=== PATIENT | female | born 1955 | race Caucasian/White ===

== ENCOUNTER 2017-01-19 18:02 | Emergency (ER) | payer MEDICARE ==
[2017-01-19 19:33] VITALS: BP 136/71
[2017-01-19] MEDS ORDERED: Amoxicillin/Clavulanate TAB* 875 MG PO ONE (20:26)
--- NOTE | 2017-01-20 22:34 | UC ---
Skin Complaint HPI - HPI Summary HPI Summary: 61 y/o female with 24 hours history of L ear redness, severe pain. patient has history of cellulitis in the L ear with 2 prior episodes, last ~ 1 year go, no recent abx, multiple co-morbidiities. + increased pain, no drainage, no decreased hearing. very tender to touch. no fever, chills, no spreading. - History of Current Complaint Chief Complaint: UCSkin Time Seen by Provider: 01/19/17 20:10 Stated Complaint: LEFT EAR COMPLAINT Hx Obtained From: Patient Hx Last Menstrual Period: n/a Onset/Duration: Sudden Onset, Lasting Hours Timing: Constant Onset Severity: Severe Current Severity: Severe Pain Intensity: 8 Pain Scale Used: 0-10 Numeric - Allergy/Home Medications Allergies/Adverse Reactions: Allergies Allergy/AdvReac Type Severity Reaction Status Date / Time Aspirin Allergy Swelling Verified 01/19/17 19:26 Of Face,Lips,& Throat Azithromycin [From Zithromax] Allergy Nausea Verified 01/19/17 19:26 Carisoprodol [From Soma] Allergy THROAT Verified 01/19/17 19:26 CLOSES Cephalexin [From Keflex] Allergy Hives Verified 01/19/17 19:26 Doxycycline Allergy Nausea Verified 01/19/17 19:26 Erythromycin Allergy Nausea And Verified 01/19/17 19:26 Vomiting Ibuprofen Allergy Swelling Verified 01/19/17 19:26 Of Face,Lips,& Throat Latex Allergy RED RAISED Verified 01/19/17 19:26 AREAS Levofloxacin [From Levaquin] Allergy Hives Verified 01/19/17 19:26 Losartan [From Cozaar] Allergy N/V Verified 01/19/17 19:26 NSAIDs Allergy Swelling Verified 01/19/17 19:26 Of Face,Lips,& Throat Sulfa Antibiotics Allergy Rash Verified 01/19/17 19:26 afrin, OTC nasal inhaler AdvReac See Comment Uncoded 01/19/17 19:26 avoid Home Medications: Home Medications Insulin GLARGINE(*) [Lantus(*)] 40 units SUBCUT DAILY 01/19/17 [History Confirmed 01/19/17] Review of Systems Skin: Rash ENT: Ear Ache Musculoskeletal: Edema Is Patient Immunocompromised?: No All Other Systems Reviewed And Are Negative: Yes PMH/Surg Hx/FS Hx/Imm Hx Previously Healthy: No Other History Of: Negative For: Hepatitis B - Surgical History Surgical History: Yes Surgery Procedure, Year, and Place: cardiac stent (pt will bring implant card to document mri safety). left shoulder surgery. tubal ligation. mei - Social History Alcohol Use: None Substance Use Type: Prescribed Smoking Status (MU): Heavy Every Day Tobacco Smoker Type: Cigarettes Amount Used/How Often: 1 PPD Have You Smoked in the Last Year: Yes Physical Exam Triage Information Reviewed: Yes Appearance: Well-Appearing, Well-Nourished, Pain Distress - mild to moderate Vital Signs: Initial Vital Signs Temp 97.8 F 01/19/17 19:29 Pulse 66 01/19/17 19:29 Resp 16 01/19/17 19:29 BP 136/71 01/19/17 19:29 Pulse Ox 99 01/19/17 19:29 Vital Signs Reviewed: Yes Eye Exam: Normal ENT: Positive: TMs normal, Other: - entire L ear erythematous, moderately edematous without drainage, + warmth, tender to light touch, no tenderness in ear canal, normla canal examination, no tenderness of mastoid region. Course/Dx - Course Course Of Treatment: cellulitis L ear- abx, pain medication given, follow up with primary ir no improvement within 24 hours. - Differential Diagnoses - Skin Complaint Differential Diagnoses: Abscess, Cellulitis - Diagnoses Provider Diagnoses: cellulitis L ear Discharge - Discharge Plan Condition: Good Disposition: HOME Prescriptions: Amoxicillin/Clavulanate TAB* [Augmentin TAB 875*] 875 mg PO BID #20 tab Hydrocodone-Acetaminophen [[place] 5-325 mg] 1 tab PO Q6H #20 tab MDD 8 Patient Education Materials: Cellulitis (ED) Referrals: Millie Earl MD [Primary Care Provider] - Additional Instructions: - norco 1-2 tablets every 6 hours as needed for pain - Antibiotics twice daily x 10 days - Follow up with primary physician within 2-3 days for repeat evaluation
== END 2017-01-19 20:33 | disposition home or self-care (01) ==
LOC: UCCORT 18:02
DX: H60.12 Cellulitis of left external ear (principal)
CPT/HCPCS: 99212; A9270-GY; G0463